=== PATIENT | female | born 1945 | race Caucasian/White ===

== ENCOUNTER 2017-04-19 23:06 | Observation (INO) ==
[2017-04-19] MEDS ORDERED: Prochlorperazine 10 MG/2 ML VIAL IVP ONE (23:30)
--- NOTE | 2017-04-19 23:37 | Emergency Department Note ---
Disposition Clinical Impression: Dizziness Disposition: Admitted As Inpatient Condition: Fair Referrals: Grzegorz Louis Jr, MD [Primary Care Provider] - Forms: ED Satisfaction Letter Time of Disposition: 02:41 Dizziness HPI - General Chief Complaint: ED Nausea/Vomiting/Diarrhea Stated Complaint: dizziness/n/v Time Seen by Provider: 04/19/17 23:17 Source: patient, EMS Limitations: no limitations Nursing Notes Reviewed: Yes Vital Signs Reviewed: Yes - History of Present Illness HPI Narrative: 72-year-old female presents with onset of nausea and vomiting and dizziness. She describes the dizziness as the room is moving, feeling unbalanced and unable to stand straight. She also notes that she feels lightheaded. She states that she feels more lightheaded and dizzy. Symptoms started approximately 3 hours prior to arrival she states it was at 8:00 in the evening and she was playing cards on her pewter. She also mentions symptoms identical to this a few months ago that had subsided. Symptoms are worsened when she opens her eyes, and moves her neck. Better when she closes her eyes and sits still. Previous to her symptoms starting, she had some numbness in her right little and ring finger. Otherwise she denies any weakness, numbness, tingling, voice changes, confusion, fever, recent illness, headache, vision changes. - Related Data Allergies Allergy/AdvReac Type Severity Reaction Status Date / Time Erythromycin Base Allergy Hives Verified 11/20/16 11:45 hydrochlorothiazide Allergy Rash Verified 11/20/16 11:45 Penicillins Allergy Hives Verified 11/20/16 11:45 pseudoephedrine AdvReac Rash Verified 11/20/16 11:45 All systems ED: reviewed and negative except as stated. Constitutional: Denies: fever, chills Eyes: Denies: eye discharge, vision change ENT ED: Denies: throat pain Cardiovascular: Denies: palpitations Respiratory: Denies: dyspnea Gastrointestinal: Denies: abdominal pain Genitourinary: Denies: dysuria Musculoskeletal: Denies: back pain Integumentary: Denies: rash Neurological: Denies: headache, weakness, numbness, paresthesias Psychiatric: Denies: anxiety Endocrine: Denies: fatigue Hematological/Lymphatic: Denies: easy bleeding Allergic/Immunologic: Denies: facial swelling Past Medical History - Past Medical History Medical history: Reports: asthma, hyperlipidemia, hypertension Psychiatric history: Reports: depression - Social History Smoking Status: Never smoker Smokeless Tobacco Status: No Alcohol use: Reports: none Drug use: Reports: none Physical Exam - General Limitations: no limitations General appearance: alert, in no apparent distress - Head Head exam: normocephalic - Neck Neck exam: Present: full ROM. Absent: tenderness - Chest Chest inspection: Present: symmetric chest wall rise - Respiratory Respiratory exam: Present: normal lung sounds bilaterally. Absent: respiratory distress - Cardiovascular Cardiovascular exam: Present: regular rate, normal rhythm - Extremities Exam Extremities exam: Present: normal inspection, full ROM, normal capillary refill - Back Exam Back exam: Present: full ROM. Absent: tenderness - Neurological Exam Neurological exam: Present: alert, oriented X3 - Expanded Neurological Exam Patient oriented to: Present: person, place, time Speech: Present: fluid speech Motor strength - LUE: 5/5 Motor strength - RUE: 5/5 Motor strength - LLE: 5/5 Motor strength - RLE: 5/5 Coma Scale Eye Opening: Spontaneous Coma Scale Motor Response: Obeys Commands Coma Scale Verbal Response: Oriented Coma Scale Total: 15 - Psychiatric Psychiatric exam: Present: normal affect, normal mood - Skin Skin exam: Present: warm, dry, intact, normal color. Absent: rash, cyanosis, diaphoresis Course Course Narrative: Patient seen and examined. She is in no acute distress and nontoxic. Alert and oriented 3. Patient is unwilling to open her eyes for complete neuro exam. She shows no extremity weakness, voice changes, facial asymmetry. Vitals within normal limits. Denies any history of stroke. Anti-medics and workup ordered. - Reevaluation(s) Reevaluation #1: Discussed patient with Dr. Sapp, who also had FaceTime with patient, and advised tis does appear to be vertigo, no overt strok symptoms at this point, will treat with antiemetics and reevaluate. Time: 23:37 Reevaluation #2: On nursing a bedside attempting to place IV. Patient states her symptoms are improving. The improving even before the antiemetic. I had another discussion with patient with Dr. Sapp who again had a stomach patient as well. At this point symptoms are worsening, she has no gross focal neurological deficits. She does have lateral nystagmus, and symptoms are consistent with vertigo area. This point feel this is less likely a stroke and more likely vertigo, however patient has had no prior workup. Upon further discussion with patient, she did have some sensation in her lower legs earlier in the day that had resolved. She describes that as feeling unbalanced. She notes similar symptoms a few months ago as well. Will order CT of head, and hospitalist for admission. Time: 00:41 Reevaluation #3: Pt. discussed with and accepted by hospitalist, Dr. Lovell who also requested aspirin, statin, and telebed. Time: 02:40 Vital Signs Temperature 97.7 F 04/19/17 23:08 Pulse Rate 80 04/19/17 23:08 Respiratory Rate 18 04/19/17 23:08 Blood Pressure 195/88 04/19/17 23:08 O2 Sat by Pulse Oximetry 99 04/19/17 23:08 Temperature 97.7 F 04/19/17 23:08 Pulse Rate 82 04/20/17 01:07 Respiratory Rate 18 04/20/17 01:07 Blood Pressure 177/73 04/20/17 01:07 O2 Sat by Pulse Oximetry 99 04/20/17 01:07 Oxygen Delivery Oxygen Delivery Room Air Dizziness - MDM Narrative Medical decision making narrative: Chest X-Ray 04/19/17 23:17 IMPRESSION: No acute abnormality detected. D/ / Brennan Oliveira MD / Brennan Oliveira MD Interpreting Provider: Brennan Oliveira MD Head CT 04/20/17 00:38 IMPRESSION: Limited study with right frontal lobe ischemia versus artifact. Brain MRI could be obtained for further evaluation if clinically warranted. D/ / Homero Mayer MD / Homero Mayer MD Interpreting Provider: Homero Mayer MD All Lab Results (24 Hours) 04/19/17 04/20/17 04/20/17 Range/Units 23:40 00:31 00:31 WBC 12.2 H (4.3-11.1) K/mcL RBC 4.52 (3.82-4.97) M/mcL Hgb 13.8 (11.5-15.4) g/dL Hct 42.6 (35.3-44.9) % MCV 94.2 (83.0-100.0) fL MCH 30.5 (28.0-33.3) pg MCHC 32.4 (31.6-35.5) g/dL RDW 12.8 (11.5-14.5) % Plt Count 250 (140-400) K/mcL MPV 10.5 (9.4-12.4) fL Immature Gran % 0.3 (0-4) % Seg Neutrophils % 89.1 % Lymphocytes % 6.5 % Monocytes % 3.8 % Eosinophils % 0.1 % Basophils % 0.2 % Neutrophils # 10.9 H (1.6-8.9) K/mcL Lymphocytes # 0.8 (0.6-4.6) K/mcL Monocytes # 0.5 (0.0-1.3) K/mcL Eosinophils # 0.0 (0.0-0.6) K/mcL Basophils # 0.0 (0.0-0.2) K/mcL PT (9.4-12.1) Seconds INR APTT (26.0-36.0) Seconds Sodium 141 (136-145) mEq/L Potassium 3.8 (3.5-4.5) mEq/L Chloride 108 (98-109) mEq/L Carbon Dioxide 22 (19-29) mEq/L BUN 18 (7-20) mg/dL Creatinine 0.68 (0.57-1.11) mg/dL Est GFR ( Amer) > 60 (> 60) Est GFR (Non-Af Amer) > 60 (> 60) BUN/Creatinine Ratio 26 (6-26) Glucose 157 H (70-99) mg/dL Calculated Osmolality 297 (280-300) Calcium 9.2 (8.6-10.8) mg/dL Troponin I (0-0.03) ng/mL Urine Color Yellow (Yellow) Urine Clarity Cloudy A (Clear) Urine pH 7.0 (5.0-8.0) pH Units Ur Specific [place] 1.021 (1.010-1.025) Urine Protein Negative (Neg-Trace) mg/dL Urine Glucose (UA) Normal (Normal) mg/dL Urine Ketones 15 H (Negative) mg/dL Urine Blood Negative (Negative) Urine Nitrite Negative (Negative) Urine Bilirubin Negative (Negative) Urine Urobilinogen Normal (Normal) mg/dL Ur Leukocyte Esterase Negative (Negative) Urine Microscopic RBC 0-3 (0-3) per hpf Urine Microscopic WBC 0-3 (0-3) per hpf Ur Squamous Epith Cells Many H (None-Few) per lpf Urine Bacteria None Seen (None-Few) per hpf Hyaline Casts None Seen (None-Few) per lpf Ur Culture Indicated? NO (NO) 04/20/17 04/20/17 Range/Units 00:31 00:31 WBC (4.3-11.1) K/mcL RBC (3.82-4.97) M/mcL Hgb (11.5-15.4) g/dL Hct (35.3-44.9) % MCV (83.0-100.0) fL MCH (28.0-33.3) pg MCHC (31.6-35.5) g/dL RDW (11.5-14.5) % Plt Count (140-400) K/mcL MPV (9.4-12.4) fL Immature Gran % (0-4) % Seg Neutrophils % % Lymphocytes % % Monocytes % % Eosinophils % % Basophils % % Neutrophils # (1.6-8.9) K/mcL Lymphocytes # (0.6-4.6) K/mcL Monocytes # (0.0-1.3) K/mcL Eosinophils # (0.0-0.6) K/mcL Basophils # (0.0-0.2) K/mcL PT 11.0 (9.4-12.1) Seconds INR 1.0 APTT 25.8 L (26.0-36.0) Seconds Sodium (136-145) mEq/L Potassium (3.5-4.5) mEq/L Chloride (98-109) mEq/L Carbon Dioxide (19-29) mEq/L BUN (7-20) mg/dL Creatinine (0.57-1.11) mg/dL Est GFR ( Amer) (> 60) Est GFR (Non-Af Amer) (> 60) BUN/Creatinine Ratio (6-26) Glucose (70-99) mg/dL Calculated Osmolality (280-300) Calcium (8.6-10.8) mg/dL Troponin I 0.00 (0-0.03) ng/mL Urine Color (Yellow) Urine Clarity (Clear) Urine pH (5.0-8.0) pH Units Ur Specific [place] (1.010-1.025) Urine Protein (Neg-Trace) mg/dL Urine Glucose (UA) (Normal) mg/dL Urine Ketones (Negative) mg/dL Urine Blood (Negative) Urine Nitrite (Negative) Urine Bilirubin (Negative) Urine Urobilinogen (Normal) mg/dL Ur Leukocyte Esterase (Negative) Urine Microscopic RBC (0-3) per hpf Urine Microscopic WBC (0-3) per hpf Ur Squamous Epith Cells (None-Few) per lpf Urine Bacteria (None-Few) per hpf Hyaline Casts (None-Few) per lpf Ur Culture Indicated? (NO) - Lab Data Lab results reviewed: Yes I reviewed the patient's lab results. Result diagrams: 04/20/17 00:31 04/20/17 00:31 Lab Results 04/19/17 04/20/17 04/20/17 Range/Units 23:40 00:31 00:31 WBC 12.2 H (4.3-11.1) K/mcL RBC 4.52 (3.82-4.97) M/mcL Hgb 13.8 (11.5-15.4) g/dL Hct 42.6 (35.3-44.9) % MCV 94.2 (83.0-100.0) fL MCH 30.5 (28.0-33.3) pg MCHC 32.4 (31.6-35.5) g/dL RDW 12.8 (11.5-14.5) % Plt Count 250 (140-400) K/mcL MPV 10.5 (9.4-12.4) fL Immature Gran % 0.3 (0-4) % Seg Neutrophils % 89.1 % Lymphocytes % 6.5 % Monocytes % 3.8 % Eosinophils % 0.1 % Basophils % 0.2 % Neutrophils # 10.9 H (1.6-8.9) K/mcL Lymphocytes # 0.8 (0.6-4.6) K/mcL Monocytes # 0.5 (0.0-1.3) K/mcL Eosinophils # 0.0 (0.0-0.6) K/mcL Basophils # 0.0 (0.0-0.2) K/mcL PT (9.4-12.1) Seconds INR APTT (26.0-36.0) Seconds Sodium 141 (136-145) mEq/L Potassium 3.8 (3.5-4.5) mEq/L Chloride 108 (98-109) mEq/L Carbon Dioxide 22 (19-29) mEq/L BUN 18 (7-20) mg/dL Creatinine 0.68 (0.57-1.11) mg/dL Est GFR ( Amer) > 60 (> 60) Est GFR (Non-Af Amer) > 60 (> 60) BUN/Creatinine Ratio 26 (6-26) Glucose 157 H (70-99) mg/dL Calculated Osmolality 297 (280-300) Calcium 9.2 (8.6-10.8) mg/dL Troponin I (0-0.03) ng/mL Urine Color Yellow (Yellow) Urine Clarity Cloudy A (Clear) Urine pH 7.0 (5.0-8.0) pH Units Ur Specific [place] 1.021 (1.010-1.025) Urine Protein Negative (Neg-Trace) mg/dL Urine Glucose (UA) Normal (Normal) mg/dL Urine Ketones 15 H (Negative) mg/dL Urine Blood Negative (Negative) Urine Nitrite Negative (Negative) Urine Bilirubin Negative (Negative) Urine Urobilinogen Normal (Normal) mg/dL Ur Leukocyte Esterase Negative (Negative) Urine Microscopic RBC 0-3 (0-3) per hpf Urine Microscopic WBC 0-3 (0-3) per hpf Ur Squamous Epith Cells Many H (None-Few) per lpf Urine Bacteria None Seen (None-Few) per hpf Hyaline Casts None Seen (None-Few) per lpf Ur Culture Indicated? NO (NO) 04/20/17 04/20/17 Range/Units 00:31 00:31 WBC (4.3-11.1) K/mcL RBC (3.82-4.97) M/mcL Hgb (11.5-15.4) g/dL Hct (35.3-44.9) % MCV (83.0-100.0) fL MCH (28.0-33.3) pg MCHC (31.6-35.5) g/dL RDW (11.5-14.5) % Plt Count (140-400) K/mcL MPV (9.4-12.4) fL Immature Gran % (0-4) % Seg Neutrophils % % Lymphocytes % % Monocytes % % Eosinophils % % Basophils % % Neutrophils # (1.6-8.9) K/mcL Lymphocytes # (0.6-4.6) K/mcL Monocytes # (0.0-1.3) K/mcL Eosinophils # (0.0-0.6) K/mcL Basophils # (0.0-0.2) K/mcL PT 11.0 (9.4-12.1) Seconds INR 1.0 APTT 25.8 L (26.0-36.0) Seconds Sodium (136-145) mEq/L Potassium (3.5-4.5) mEq/L Chloride (98-109) mEq/L Carbon Dioxide (19-29) mEq/L BUN (7-20) mg/dL Creatinine (0.57-1.11) mg/dL Est GFR ( Amer) (> 60) Est GFR (Non-Af Amer) (> 60) BUN/Creatinine Ratio (6-26) Glucose (70-99) mg/dL Calculated Osmolality (280-300) Calcium (8.6-10.8) mg/dL Troponin I 0.00 (0-0.03) ng/mL Urine Color (Yellow) Urine Clarity (Clear) Urine pH (5.0-8.0) pH Units Ur Specific [place] (1.010-1.025) Urine Protein (Neg-Trace) mg/dL Urine Glucose (UA) (Normal) mg/dL Urine Ketones (Negative) mg/dL Urine Blood (Negative) Urine Nitrite (Negative) Urine Bilirubin (Negative) Urine Urobilinogen (Normal) mg/dL Ur Leukocyte Esterase (Negative) Urine Microscopic RBC (0-3) per hpf Urine Microscopic WBC (0-3) per hpf Ur Squamous Epith Cells (None-Few) per lpf Urine Bacteria (None-Few) per hpf Hyaline Casts (None-Few) per lpf Ur Culture Indicated? (NO) - Radiology Data Radiology results reviewed: Yes I reviewed the patient's radiology results. - EKG Data EKG attestation: Yes I reviewed and interpreted this EKG. EKG results narrative: sinus rhythym, non acute ST changes, signs of ischemia Attestation Statement - Attestation Attestation: I, Jeremias Sapp DO have provided [id number] time during the care of this patient. Detailed review the presentation, symptoms, medical history were discussed and reviewed with the mid-level provider Leeroy Pastrana PA-C/CARDIAC CATH LAB TECHNOLOGIST. Medical intervention labs and imaging studies were reviewed in detail. See full documentation of physical exam and course of care in the mid-level provider 's note. I agree with the determined course of care, medical interventio,n and disposition put forth by the mid-level provider. See below documentation for changes or alterations in documentation. 72-year-old female presents emergency room with acute onset of dizziness. Symptoms are only present when she opens her eyes. She had these symptoms on and off several times in the past. Usually resolve on her own. She does not see a neurologist and has not had an official diagnosis of vertigo. No history of cardiac related issues, strokes, blood clots. Patient denies any recent trauma or injuries. Denies any medication changes. Currently denying chest pain shortness of breath headache vision changes nausea vomiting or diarrhea. Main complaint is the uncontrolled spinning sensation. Neurologic evaluation shows no acute signs of asymmetry in facial musculature. She has normal function of the upper and lower extremities while she keeps the eye shut. Her eyes are open she has lateralizing nystagmus is fatigable. She has symptoms that are present with turning of the head as well is opening of the eyes. No physical exam findings concerning for strokelike symptoms at this time. IV access obtained and Compazine given. Symptoms resolved spontaneously on her own just prior to the medications and almost completely gone away with the medication this time. Because of the patient's history as well as the onset of the symptoms we are going to do a neurologic evaluation including CT of the head labs and then most likely admission to hospital for dizziness symptoms to have further MRI and carotid Dopplers. Clinically no acute signs of strokelike symptoms this time stroke alert was not catheter. Patient family was informed See detailed discussion at the bedside. Patient will be admitted for further evaluation and definitive management. Symptoms have completely resolved during the emergency room prior to being admitted at this time. EKG reviewed shows stable sinus rhythm and no acute abnormalities no acute signs of morphology issues or interval abnormalities this time. No acute signs of ST segment elevation myocardial infarction. Patient and does not form a comfortable plan. See detailed documentation of physical exam, stroke evaluation, medical intervention, medical decision-making, consultations and admission process in the mid-level provider's note. [id number] Patient is symptom free at this time. She does feel slightly unsteady and this could be the medication. CT imaging reviewed with possibility of ischemic area in the frontal aspect of the brain. Does not fit the patient's symptoms of vertigo on presentation. No other acute pathology noted. Admission process to be completed for MRI and carotid Dopplers. Patient is otherwise at baseline no acute neurologic symptoms or deficits at this point. See documentation in consultation with the
[2017-04-19 23:46] LABS: Bilirubin,Urine Negative (Negative); Blood,Urine Negative (Negative); Clarity,Urine Cloudy (Clear); Color,Urine Yellow (Yellow); Glucose,Urine (UA) Normal (Normal); Ketones,Urine 15 mg/dL (Negative); Leukocyte Esterase,Urine Negative (Negative); Nitrite,Urine Negative (Negative); Protein,Urine Negative (Neg-Trace); Specific Gravity,Urine 1.021 (1.010-1.025); Urobilinogen,Urine Normal (Normal)
[2017-04-19 23:49] LABS: Bacteria,Urine None Seen per hpf (None-Few); Hyaline Casts,Urine None Seen per lpf (None-Few); RBC,Urine 0-3 per hpf (0-3); Squamous Epithelial Cell,Urine Many per lpf (None-Few); WBC,Urine 0-3 per hpf (0-3)
[2017-04-20 00:46] LABS: Activated Partial Thrombo Time 25.8 Seconds (26.0-36.0); Basophils % 0.2 %; Eosinophils % 0.1 %; Hematocrit 42.6 % (35.3-44.9); Hemoglobin 13.8 g/dL (11.5-15.4); Immature Granulocytes % 0.3 % (0-4); Lymphocytes # 0.8 K/mcL (0.6-4.6); Lymphocytes % 6.5 %; Mean Corpuscular HGB Conc 32.4 g/dL (31.6-35.5); Mean Corpuscular Hemoglobin 30.5 pg (28.0-33.3); Mean Corpuscular Volume 94.2 fL (83.0-100.0); Mean Platelet Volume 10.5 fL (9.4-12.4); Monocytes # 0.5 K/mcL (0.0-1.3); Monocytes % 3.8 %; Neutrophils # 10.9 K/mcL (1.6-8.9); Platelet Count 250 K/mcL (140-400); Red Blood Count 4.52 M/mcL (3.82-4.97); Red Cell Distribution Width 12.8 % (11.5-14.5); Segmented Neutrophils % 89.1 %
[2017-04-20 00:54] LABS: BUN/Creatinine Ratio 26 (6-26); Blood Urea Nitrogen 18 mg/dL (7-20); Calcium 9.2 mg/dL (8.6-10.8); Carbon Dioxide 22 mEq/L (19-29); Chloride 108 mEq/L (98-109); Glucose 157 mg/dL (70-99); Osmolality,Calculated 297 (280-300); Potassium 3.8 mEq/L (3.5-4.5); Sodium 141 mEq/L (136-145); eGFR For African Americans > 60 (> 60); eGFR For Non-African Americans > 60 (> 60)
[2017-04-20] MEDS ORDERED: Aspirin 81 MG TAB.CHEW PO STA (02:38)
[2017-04-20] MEDS ORDERED: *HR* Morphine 2 MG/ML SYRINGE IVP PRN (06:17)
[2017-04-20] MEDS ORDERED: Naloxone 0.4 MG/ML INJ IVP PRN (06:17)
[2017-04-20] MEDS ORDERED: Ondansetron 4 MG/2 ML VIAL IVP PRN (06:17)
[2017-04-20] MEDS ORDERED: Acetaminophen 325 MG TABLET PO PRN (06:17)
[2017-04-20] MEDS ORDERED: 0.9 % Sodium Chloride 1,000 ML IVC SCH (06:30)
[2017-04-20] MEDS: Aspirin 81 MG TAB.CHEW PO SCH (07:40)
[2017-04-20] MEDS: *HR* Heparin 5,000 UNIT/ML VIAL SQ SCH ×2 (07:40→16:08)
[2017-04-20] MEDS ORDERED: Lisinopril 20 MG TABLET PO SCH (09:00)
[2017-04-20 09:08] LABS: Basophils % 0.2 %; Eosinophils % 0.2 %; Hematocrit 39.1 % (35.3-44.9); Hemoglobin 12.6 g/dL (11.5-15.4); Immature Granulocytes % 0.2 % (0-4); Lymphocytes # 1.6 K/mcL (0.6-4.6); Lymphocytes % 17.9 %; Mean Corpuscular HGB Conc 32.2 g/dL (31.6-35.5); Mean Corpuscular Hemoglobin 29.9 pg (28.0-33.3); Mean Corpuscular Volume 92.7 fL (83.0-100.0); Mean Platelet Volume 10.6 fL (9.4-12.4); Monocytes # 0.7 K/mcL (0.0-1.3); Monocytes % 7.9 %; Neutrophils # 6.5 K/mcL (1.6-8.9); Platelet Count 248 K/mcL (140-400); Red Blood Count 4.22 M/mcL (3.82-4.97); Segmented Neutrophils % 73.6 %
[2017-04-20 09:30] LABS: BUN/Creatinine Ratio 24 (6-26); Blood Urea Nitrogen 15 mg/dL (7-20); Calcium 8.8 mg/dL (8.6-10.8); Carbon Dioxide 23 mEq/L (19-29); Chloride 111 mEq/L (98-109); Glucose 97 mg/dL (70-99); Osmolality,Calculated 299 (280-300); Potassium 3.3 mEq/L (3.5-4.5); Sodium 144 mEq/L (136-145); eGFR For African Americans > 60 (> 60); eGFR For Non-African Americans > 60 (> 60)
[2017-04-20 09:31] LABS: Chol/HDL Ratio 4.2 (0-4.9); Magnesium 1.9 mg/dL (1.6-2.6)
--- NOTE | 2017-04-20 13:20 | Internal Med History&Physical ---
Date of Encounter: 04/20/17 Time of Encounter: 09:30 Assessment and Plan (1) Ataxia Current visit: Yes Status: Acute Will admit the pt into Tele With her ataxia and dizziness concerned for acute posterior circulation CVA Reviewed CT of Head.. No acute infractions.. however there was an artifact in frontal lobe will get MRI of brain 2 D Echo and Carotid doppler cont ASA 81mg for now--- she is ASA naive Reviewed FLP - LDL -141.. started on Lipitor (2) Vertigo Current visit: Yes Status: Acute Her presentation also concering for Positional vertigo too PT / OT eval Also cont Meclizine TID (3) Hypertensive urgency Current visit: Yes Status: Acute Uncontrolled HTN Cont home med Losartan and added Metoprolol Seems to be stable now. (4) Hyperlipidemia Current visit: Yes Status: Acute started on lipitor Qualifiers: Hyperlipidemia type: unspecified Qualified Code(s): E78.5 - Hyperlipidemia , unspecified Internal Medicine - H&P: HPI Chief complaint: Dizziness Admitted From: Emergency Dept Plans for Post Hospital Care: Home History of present illness: This is a 72-year-old female with known PMH HTN presented to ER with suddent onset lightheadedness, dizziness with nausea and vomiting. She describes the dizziness as the room is moving, feeling unbalanced and unable to stand straight. She also notes that she feels lightheaded. She states that she feels more lightheaded and dizzy. Symptoms started approximately 3 hours prior to arrival she states it was at 8:00 in the evening and she was playing cards on her pewter. She also mentions symptoms identical to this 2 months ago that had subsided. Symptoms are worsened when she opens her eyes, and moves her neck. Better when she closes her eyes and sits still. Denied any CP / SOB Past Med Surg Social Fam HX - Past Medical History Medical history: asthma, hyperlipidemia, hypertension Psychiatric history: depression - Past Surgical History Surgical History: no surgical history - Social History Smoking Status: Never smoker Smokeless Tobacco Status: No Alcohol use: none Drug use: none - Family History Mother Living Status: Age at : 57 Cause of : Breast CA Hx Family Cardiac Disorders: No Hx Family Respiratory Disorders: No Hx Family Cancer: Yes Hx Family GI Disorders: No Hx Family Genitourinary Disorders: No Hx Family Endocrine Disorder: Yes (Thyroid tumor) Hx Family Musculoskeletal Disorders: No Hx Family Neuromuscular Disorders: No Hx Family Neurologic Disorders: No Hx Family HEENT Disorders: No Hx Family Autoimmune Disorders: No Hx Family Reproductive Disorders: No Hx Family Psychosocial Disorders: No Hx Family Medical Disorders: No Internal Medicine - H&P: Meds Losartan Potassium [Cozaar] 50 mg PO DAILY 04/20/17 [History] 3 Allergy/AdvReac Type Severity Reaction Status Date / Time Erythromycin Base Allergy Hives Verified 11/20/16 11:45 hydrochlorothiazide Allergy Rash Verified 11/20/16 11:45 Penicillins Allergy Hives Verified 11/20/16 11:45 pseudoephedrine AdvReac Rash Verified 11/20/16 11:45 All Systems PM: A 10-system review of systems was performed and is negative for pertinent findings except as documented above in the HPI. Review of systems: All the systems are reviewed everything is benign except the systems and symptoms I mentioned in the history of present illness - Constitutional Vitals: Temp Pulse Resp BP Pulse Ox 98.6 F 65 16 135/69 95 04/20/17 11:37 04/20/17 11:37 04/20/17 11:37 04/20/17 11:37 04/20/17 11:37 General appearance: Present: A&O X 3, pleasant, no acute distress, answers questions appropriately - Head Head exam: Present: atraumatic, normal inspection - Neck Neck exam general surgery: Present: supple - Respiratory Respiratory exam: Present: CTAB. Absent: accessory muscle use, rales, rhonchi, wheezes - Cardiovascular Cardiovascular exam: Present: RRR, +S1, +S2. Absent: systolic murmur - GI/Abdominal GI/Abdominal exam: Present: normal bowel sounds, soft, no peritoneal signs. Absent: distended, tenderness - Extremities Exam Extremities exam: Absent: calf tenderness, pedal edema, tenderness - Neurological Exam Neurological exam: Present: alert, CN II-XII intact, normal gait, oriented X3, no focal deficits. Absent: pronater drift, facial droop, speech deficit - Psychiatric Psychiatric exam: Present: normal affect, normal mood Internal Med - H&P Results - Labs CBC & Chem 7: 04/20/17 08:33 04/20/17 08:33 Labs: Short CBC 04/20/17 Range/Units 08:33 WBC 8.8 (4.3-11.1) K/mcL Hgb 12.6 (11.5-15.4) g/dL Hct 39.1 (35.3-44.9) % Plt Count 248 (140-400) K/mcL Neutrophils # 6.5 (1.6-8.9) K/mcL BMP 04/20/17 08:33 Sodium 144 Potassium 3.3 L Chloride 111 H Carbon Dioxide 23 BUN 15 Creatinine 0.63 Glucose 97 Calcium 8.8 Cardiac Enzymes 04/20/17 Range/Units 08:33 Troponin I 0.00 (0-0.03) ng/mL
--- NOTE | 2017-04-20 15:30 | Event Note ---
Date of Encounter: 04/20/17 Time of Encounter: 15:29 A review by [facility] and a member of the utilization review committee has determines that the is to be changed to observation using condition code 44.
[2017-04-20] MEDS ORDERED: Famotidine 20 MG/2 ML VIAL IVP SCH (18:00)
--- NOTE | 2017-04-20 18:43 | Electrocardiograph Report ---
[place] [id number] Test Date: 2017-04-20 Pat Name: Jessica Gracia Department: 105 Room: 3B32 Gender: F Senior Underwriting Assistant: SHOSHANA : [id number] Requested By: Henry Pastrana Order Number: [id number] Reading MD: Elisha Reyes Measurements Intervals [place] Rate: 71 P: 56 ME: 184 QRS: 45 QRSD: 77 T: 11 QT: 402 QTc: 425 Interpretive Statements SINUS RHYTHM NONSPECIFIC T-WAVE ABNORMALITY Electronically Signed On 04-20-2017 18:41:42 EDT by Elisha Reyes
[2017-04-21] MEDS: *HR* Heparin 5,000 UNIT/ML VIAL SQ SCH ×2 (00:49→08:21)
[2017-04-21] MEDS: Aspirin 81 MG TAB.CHEW PO SCH (08:20)
--- NOTE | 2017-04-21 10:50 | Discharge Summary ---
Date of Encounter: 04/21/17 Time of Encounter: 10:45 - Discharge Diagnosis (1) Hypertensive urgency Priority: Primary Status: Acute Comments: Has known hypertension. SBP in 190s/200 on arrival. BP improved and ED with one-time dose IV hydralazine. Uncontrolled BP possibly contributing to vertigo/ ataxia. On Cozaar at home, metoprolol added this admission. BP controlled with home Cozaar and new BB; continue both at discharge. Patient advised to monitor BP at home (she has home BP machine). Recommend follow-up with PCP within 3 days for repeat BP check. (2) Carotid stenosis Priority: Primary Status: Acute Comments: 04/20/2017 bilateral carotid dopplers with ICA 60-79%. ASA, statin initiated. Will need outpatient follow-up with Vascular Surgery Qualifiers: Laterality: bilateral Qualified Code(s): I65.23 - Occlusion and stenosis of bilateral carotid arteries (3) Hypokalemia Priority: Primary Status: Acute Comments: K 3.3; replaced. Recommend follow-up with PCP in 5 days for repeat labs (4) Hyperlipidemia Priority: Primary Status: Acute Comments: LDL 141. Statin started inpatient. Recommend repeating lipid panel in 6 months with PCP. Qualifiers: Hyperlipidemia type: pure hypercholesterolemia Qualified Code(s): E78.00 - Pure hypercholesterolemia, unspecified; E78.0 - Pure hypercholesterolemia (5) Vertigo Priority: Primary Status: Acute Comments: presented with 2 episodes of dizziness with head movement on day of presentation. Sx's resolved in ED; no recurrence. Brain MRI unremarkable, TTE without evidence of shunting. Sx's possibly secondary to uncontrolled HTN. Meclizine started inpatient, will cont at discharge. Plan for outpatient follow- up with PCP in 5 days - Discharge Medications Prescriptions: Aspirin 81 mg PO DAILY #30 tab.chew Atorvastatin [Lipitor] 40 mg PO HS #30 tablet Meclizine [Antivert] 12.5 mg PO TID #30 tablet Metoprolol [Lopressor] 25 mg PO BID #60 tablet Home Medications: Losartan Potassium [Cozaar] 50 mg PO DAILY 04/20/17 [History] Aspirin 81 mg PO DAILY #30 tab.chew 04/21/17 [Rx] Atorvastatin [Lipitor] 40 mg PO HS #30 tablet 04/21/17 [Rx] Meclizine [Antivert] 12.5 mg PO TID #30 tablet 04/21/17 [Rx] Metoprolol [Lopressor] 25 mg PO BID #60 tablet 04/21/17 [Rx] Allergies/Adverse Reactions: 3 Allergy/AdvReac Type Severity Reaction Status Date / Time Erythromycin Base Allergy Hives Verified 11/20/16 11:45 hydrochlorothiazide Allergy Rash Verified 11/20/16 11:45 Penicillins Allergy Hives Verified 11/20/16 11:45 pseudoephedrine AdvReac Rash Verified 11/20/16 11:45 Procedures/tests Complete & Pending: Procedures Performed prior 72 hours Category Date Time Status MR head/brain wo con [MR] Routine MRI 04/20/17 06:16 Completed ECG 12 lead ECG [ECG] AM 0600 Y 04/21/17 06:00 Completed EV carotid duplex imaging BI Routine Y 04/20/17 06:16 Completed EV echo with saline Routine Y 04/20/17 06:16 Completed Date of admission: 04/20/17 02:50 Primary care physician: Grzegorz Louis Jr, MD Consults: 04/20/17 06:20 Consult to Occupational Therapy [CONS] Routine Comment: Evaluate, develop and implement POC Reason for Consult: Possible CVA, OT eval Consult to Physical Therapy [CONS] Routine Comment: Evaluate, develop and implement POC Reason for Consult: Possible CVA, PT eval Discharging clinician: Maggi Sweet Anticipated date of discharge: 04/21/17 - Patient Status Disposition: Home, Self-Care Condition: Good Functional capacity at discharge: independent ambulation Overall status at discharge: patient is back to baseline - Discharge Instructions Follow Up With: Grzegorz Louis Jr, MD [Primary Care Provider] - 04/26/17 1:00 pm (This appointment will be with Devika Dozier CNP. Thank you!) Additional Instructions: You will need to follow-up with Dr. Norman regarding carotid stenosis Interval History: Seen and examined at bedside; says she feels better and wants to go home. No sx recurrence while inpatient. Discussed BP control and carotid stenosis at length with patient. She verbalizes understanding and aware of follow-up appts have been made. She has no complaints, denies double/blurred vision. No numbness, tingling. No CP, no SOB Hospital course: Ms. Gracia is a 72 year old female - Time Spent with Patient Total time spent providing and/or coordinating discharge services: Greater than 30 minutes (67 minutes) - Constitutional Vitals: Temp Pulse Resp BP Pulse Ox 98.5 F 68 14 142/77 94 04/21/17 06:07 04/21/17 06:07 04/21/17 06:07 04/21/17 06:07 04/21/17 06:07 General appearance: Present: A&O X 3, pleasant, no acute distress, answers questions appropriately - Head Head exam: Present: atraumatic, normocephalic - Eye Eye exam: Present: PERRL, conjuntiva pink, sclera anicteric Pupils: Present: PERRL - Neck Neck exam general surgery: Present: supple, trachea midline. Absent: lymphadenopathy - Respiratory Respiratory exam: Present: CTAB. Absent: accessory muscle use, rales, rhonchi, wheezes - Cardiovascular Cardiovascular exam: Present: RRR, +S1, +S2. Absent: diastolic murmur, gallop, rubs, systolic murmur - GI/Abdominal GI/Abdominal exam: Present: normal bowel sounds, soft, no peritoneal signs. Absent: distended, tenderness - Extremities Exam Extremities exam: Present: warm, radial pulses palpable and symmetrical. Absent : calf tenderness, cyanotic, pedal edema - Neurological Exam Neurological exam: Present: CN II-XII intact, oriented X3, no focal deficits. Absent: pronater drift, facial droop, speech deficit - Skin Skin exam: Present: dry, intact - Stroke Has Patient Been Evaluated by Rehab for Stroke: Yes Contraindication Rehab Services Not Assessed: Returned to Prior Level of Function
[2017-04-21 11:43] VITALS: BP 120/71
--- NOTE | 2017-04-22 08:09 | Carotid Imaging Report ---
Carotid Duplex Patient Name:Jessica Gracia Order Number:[id number] Procedure Date:04/20/2017 Date:1945ge:72 yrs Gender:Female Lt BP:154 / 64 mmHg Rt.BP:142 / 62 mmHgHeart Rate: Location:[facility] Room #: [employer] Operator:Nikolas Day RN, RDCS Referring MD:Tay Noonan MD Reading MD:Jcarlos Sue MD Primary Indications:Cerebral Vascular Accident Risk Factors Yes/No Hypertension Yes Diabetes No Hypercholesterolemia Yes Smoker Previous No Hx of TIA No Hx of CVA No Anticoagulants No Hx of CAD/PTCA No Previous Vascular Surgery No Impressions: Findings: Bilateral mid ICA has a severe, 60-79% stenosis. Recommendations: Risk Factor Modification, Medical Therapy, and Follow up exam 12 months. Test completed on 04/20/2017 at 3:25:00 pm. Findings Carotid Duplex: Right: The right proximal common carotid artery has a PSV of 164 cm/s and a EDV of 28 cm/s. The right mid common carotid artery has a PSV of 88 cm/s and a EDV of 20 cm/s. The right distal common carotid artery has a PSV of 83 cm/s and a EDV of 24 cm/s. There is nonstenotic plaque in the right bifurcation with a PSV of 71 cm/s and a EDV of 24 cm/s. There is smooth heterogeneous plaque. There is nonstenotic plaque in the right proximal internal carotid artery with a PSV of 94 cm/s and a EDV of 32 cm/s. There is smooth heterogeneous plaque. There is 60-79% stenosis in the right mid internal carotid artery with a PSV of 167 cm/s and a EDV of 50 cm/s. There is 60-79% stenosis in the right distal internal carotid artery with a PSV of 174 cm/s and a EDV of 55 cm/s. The right eca has a PSV of 104 cm/s and a EDV of 9 cm/s. The right vertebral artery has a PSV of 55 cm/s and a EDV of 14 cm/s. Left: The left proximal common carotid artery has a PSV of 139 cm/s and a EDV of 28 cm/s. The left mid common carotid artery has a PSV of 113 cm/s and a EDV of 29 cm/s. The left distal common carotid artery has a PSV of 85 cm/s and a EDV of 26 cm/s. There is nonstenotic plaque in the left bifurcation with a PSV of 88 cm/s and a EDV of 29 cm/s. There is smooth heterogeneous plaque. There is nonstenotic plaque in the left proximal internal carotid artery with a PSV of 78 cm/s and a EDV of 19 cm/s. There is smooth heterogeneous plaque. There is 40-59% stenosis in the left mid internal carotid artery with a PSV of 126 cm/s and a EDV of 38 cm/s. There is 60-79% stenosis in the left distal internal carotid artery with a PSV of 142 cm/s and a EDV of 53 cm/s. The left eca has a PSV of 112 cm/s and a EDV of 13 cm/s. The left vertebral artery has a PSV of 73 cm/s and a EDV of 15 cm/s. Prior Study: No prior study available for comparison. Carotid Results Right PSV EDV Assessment Proximal CCA 164 28 Normal Mid CCA 88 20 Normal Distal CCA 83 24 Normal Bifurcation 71 24 Non Stenotic Plaque Proximal ICA 94 32 Non Stenotic Plaque Mid ICA 167 50 60-79% stenosis Distal ICA 174 55 60-79% stenosis ECA 104 9 Normal Vertebral Artery 55 14 Normal Left PSV EDV Assessment Proximal CCA 139 28 Normal Mid CCA 113 29 Normal Distal CCA 85 26 Normal Bifurcation 88 29 Non Stenotic Plaque Proximal ICA 78 19 Non Stenotic Plaque Mid ICA 126 38 40-59% stenosis Distal ICA 142 53 60-79% stenosis ECA 112 13 Normal Vertebral Artery 73 15 Normal Ratio's Right ICA/CCA Ratio: 1.98 ICA/CCA Values: 174/88 Left ICA/CCA Ratio: 1.26 ICA/CCA Values: 142/113 Updated by Jcarlos Sue MD on 04/22/2017 6:33:30 AM electronically signed on 04/22/2017 6:33:52 AM with status of Final
--- NOTE | 2017-04-22 08:09 | Electrocardiograph Report ---
[address] [address] Test Date: 2017-04-21 Pat Name: Jessica Gracia Department: 113 Room: 3B32 Gender: F [employer]iding In[employer]: MEENU : 1945 Requested By: Tay Noonan Order Number: [id number] Reading MD: Gian Jones MD Measurements Intervals [place] Rate: 66 P: 66 MI: 196 QRS: 64 QRSD: 76 T: 55 QT: 397 QTc: 410 Interpretive Statements SINUS RHYTHM Electronically Signed On 04-22-2017 6:35:57 EDT by Gian Jones MD
== END 2017-04-21 13:55 | disposition home or self-care (01) ==
LOC: 3BNU 23:06 → EMEROO 23:06 → SUATTDRO 04-20 02:50 → 3BNU 04-20 03:24
PROVIDERS: ADMIT Family Medicine; ATTEND Internal Medicine

== ENCOUNTER 2021-08-16 18:23 | Observation (INO) ==
[2021-08-16] MEDS ORDERED: *HR* Adenosine 6 MG/2 ML SYRINGE IVP ONE (18:27)
[2021-08-16] MEDS ORDERED: 0.9 % Sodium Chloride 1,000 ML IVC ONE (18:32)
[2021-08-16] MEDS: DilTIAZem 50 MG/50 ML IV.SOLN IVC SCH ×2 (18:41→23:42)
[2021-08-16 19:09] LABS: Basophils % 0.3 %; Eosinophils # 0.2 K/mcL (0.0-0.6); Eosinophils % 1.9 %; Hematocrit 41.8 % (35.3-44.9); Hemoglobin 13.2 g/dL (11.5-15.4); Immature Granulocytes % 0.3 % (0-4); Lymphocytes # 2.1 K/mcL (0.6-4.6); Lymphocytes % 18.9 %; Mean Corpuscular HGB Conc 31.6 g/dL (31.6-35.5); Mean Corpuscular Hemoglobin 30.3 pg (28.0-33.3); Mean Corpuscular Volume 95.9 fL (83.0-100.0); Mean Platelet Volume 11.4 fL (9.4-12.4); Monocytes # 1.2 K/mcL (0.0-1.3); Monocytes % 11.4 %; Neutrophils # 7.3 K/mcL (1.6-8.9); Platelet Count 226 K/mcL (140-400); Red Blood Count 4.36 M/mcL (3.82-4.97); Red Cell Distribution Width 12.7 % (11.5-14.5); Segmented Neutrophils % 67.2 %; White Blood Count 10.9 K/mcL (4.3-11.1)
[2021-08-16 19:20] LABS: INR 1.1; Prothrombin Time 12.1 Seconds (9.4-12.1)
[2021-08-16 19:29] LABS: BUN/Creatinine Ratio 22 (6-26); Blood Urea Nitrogen 12 mg/dL (8-23); Calcium 8.3 mg/dL (8.6-10.3); Carbon Dioxide 23 mEq/L (23-29); Chloride 106 mEq/L (98-107); Glucose 132 mg/dL (70-105); Magnesium 2.1 mg/dL (1.6-2.6); Osmolality,Calculated 292 (280-300); Potassium 3.3 mEq/L (3.5-5.1); Sodium 140 mEq/L (136-145); eGFR For African Americans > 60 (> 60); eGFR For Non-African Americans > 60 (> 60)
[2021-08-16 19:30] LABS: Troponin I < 0.03 ng/mL (< 0.04)
[2021-08-16] MEDS ORDERED: Isovue-370 500 ML BOTTLE IVP ONE (19:30)
[2021-08-16 19:45] LABS: Thyroid Stimulating Hormone 0.638 mcIU/mL (0.340-5.600)
[2021-08-16 19:52] LABS: Bacteria,Urine Few per hpf (None-Few); Bilirubin,Urine Negative (Negative); Blood,Urine Negative (Negative); Clarity,Urine Clear (Clear); Color,Urine Light-Yellow (Yellow); Glucose,Urine (UA) Normal (Normal); Ketones,Urine 10 mg/dL (Negative); Leukocyte Esterase,Urine Moderate (Negative); Nitrite,Urine Negative (Negative); Protein,Urine Negative (Neg-Trace); RBC,Urine 0-3 per hpf (0-3); Specific Gravity,Urine 1.011 (1.010-1.025); Squamous Epithelial Cell,Urine Few per hpf (None-Few); Urobilinogen,Urine Normal (Normal)
[2021-08-16 20:29] LABS: Influenza A PCR Negative (Negative); Influenza B PCR Negative (Negative); Resp. Syncytial Virus PCR Negative (Negative)
[2021-08-16 20:35] LABS: SARS-CoV-2 by PCR (In House) Negative (Negative)
[2021-08-16] MEDS ORDERED: *HR* Heparin 5,000 UNIT/ML VIAL IVP ONE (21:01)
[2021-08-16] MEDS ORDERED: *HR* Heparin 5,000 UNIT/ML VIAL IVP PRN ×2 (21:01)
[2021-08-16] MEDS ORDERED: Acetaminophen 325 MG TABLET PO PRN (21:15)
[2021-08-16] MEDS ORDERED: Ondansetron 4 MG/2 ML VIAL IVP PRN (21:15)
[2021-08-16] MEDS ORDERED: Naloxone 0.4 MG/ML INJ IVP PRN (21:15)
[2021-08-16] MEDS ORDERED: Furosemide 40 MG/4 ML VIAL IVP ONE (21:17)
[2021-08-16] MEDS ORDERED: Perflutren Lipid Microsphere 1.3 ML in 0.9 % Sodium Chloride 8.7 ML IVP PRN (21:17)
[2021-08-16] MEDS ORDERED: Ipratropium/Albuterol Neb 3 ML IH PRN (21:19)
[2021-08-16 21:31] LABS: Hemoglobin 12.3 g/dL (11.5-15.4); Mean Corpuscular HGB Conc 30.8 g/dL (31.6-35.5); Mean Corpuscular Hemoglobin 30.2 pg (28.0-33.3); Mean Corpuscular Volume 98.3 fL (83.0-100.0); Mean Platelet Volume 11.7 fL (9.4-12.4); Platelet Count 206 K/mcL (140-400); Red Blood Count 4.07 M/mcL (3.82-4.97); Red Cell Distribution Width 12.9 % (11.5-14.5); White Blood Count 12.2 K/mcL (4.3-11.1)
[2021-08-16] MEDS: Heparin 25,000UNIT/250ML 1/2NS 25,000 UNIT/250 ML IV.SOLN IVC SCH (21:48)
[2021-08-17] MEDS: cefTRIAXone 1,000 MG in 0.9 % Sodium Chloride Mini Bag 100 ML IVPB SCH ×2 (00:28→08:17)
[2021-08-17] MEDS ORDERED: *HR* Metoprolol 5 MG/5 ML VIAL IVP PRN (01:03)
[2021-08-17] MEDS: DilTIAZem 50 MG/50 ML IV.SOLN IVC SCH ×2 (02:52→06:00)
[2021-08-17 05:37] LABS: Basophils % 0.3 %; Eosinophils # 0.1 K/mcL (0.0-0.6); Eosinophils % 0.7 %; Hematocrit 39.3 % (35.3-44.9); Hemoglobin 12.7 g/dL (11.5-15.4); Immature Granulocytes % 0.4 % (0-4); Lymphocytes # 1.7 K/mcL (0.6-4.6); Lymphocytes % 17.6 %; Mean Corpuscular HGB Conc 32.3 g/dL (31.6-35.5); Mean Corpuscular Hemoglobin 30.4 pg (28.0-33.3); Mean Platelet Volume 11.9 fL (9.4-12.4); Monocytes # 1.2 K/mcL (0.0-1.3); Monocytes % 12.1 %; Neutrophils # 6.5 K/mcL (1.6-8.9); Platelet Count 211 K/mcL (140-400); Red Blood Count 4.18 M/mcL (3.82-4.97); Segmented Neutrophils % 68.9 %; White Blood Count 9.5 K/mcL (4.3-11.1)
[2021-08-17 06:03] LABS: Chol/HDL Ratio 2.4 (0-4.9)
[2021-08-17 06:06] LABS: Troponin I 0.08 ng/mL (< 0.04)
[2021-08-17 06:07] LABS: BUN/Creatinine Ratio 15 (6-26); Blood Urea Nitrogen 8 mg/dL (8-23); Calcium 8.2 mg/dL (8.6-10.3); Carbon Dioxide 24 mEq/L (23-29); Chloride 107 mEq/L (98-107); Glucose 125 mg/dL (70-105); Osmolality,Calculated 290 (280-300); Potassium 3.5 mEq/L (3.5-5.1); Sodium 140 mEq/L (136-145); eGFR For African Americans > 60 (> 60); eGFR For Non-African Americans > 60 (> 60)
[2021-08-17 11:17] LABS: Estimated Average Glucose 140 mg/dl; Hemoglobin A1C 6.5 %
[2021-08-17] MEDS: Metoprolol XL (24 HR) Succ 25 MG TAB.ER.24H PO SCH (20:39)
[2021-08-17] MEDS ORDERED: Metoprolol XL (24 HR) Succ 25 MG TAB.ER.24H PO SCH (21:00)
[2021-08-18] MEDS: Heparin 25,000UNIT/250ML 1/2NS 25,000 UNIT/250 ML IV.SOLN IVC SCH (00:34)
[2021-08-18 02:25] LABS: Hematocrit 36.6 % (35.3-44.9); Hemoglobin 11.4 g/dL (11.5-15.4); Mean Corpuscular HGB Conc 31.1 g/dL (31.6-35.5); Mean Corpuscular Volume 96.3 fL (83.0-100.0); Mean Platelet Volume 11.4 fL (9.4-12.4); Platelet Count 221 K/mcL (140-400); Red Cell Distribution Width 13.1 % (11.5-14.5); White Blood Count 7.6 K/mcL (4.3-11.1)
[2021-08-18 02:45] LABS: BUN/Creatinine Ratio 31 (6-26); Blood Urea Nitrogen 18 mg/dL (8-23); Calcium 8.3 mg/dL (8.6-10.3); Carbon Dioxide 25 mEq/L (23-29); Chloride 109 mEq/L (98-107); Glucose 126 mg/dL (70-105); Osmolality,Calculated 291 (280-300); Potassium 3.4 mEq/L (3.5-5.1); Sodium 139 mEq/L (136-145); eGFR For African Americans > 60 (> 60); eGFR For Non-African Americans > 60 (> 60)
[2021-08-18] MEDS ORDERED: Regadenoson 0.4 MG/5 ML SYRINGE IVP ONE ×2 (07:43→07:50)
[2021-08-18] MEDS ORDERED: Aspirin 81 MG TAB.CHEW PO SCH (09:00)
[2021-08-18] MEDS: Metoprolol XL (24 HR) Succ 25 MG TAB.ER.24H PO SCH (09:54)
[2021-08-18 11:17] VITALS: BP 146/87; PULSE 62; TEMP 98.2; O2SAT 96
[2021-08-18] MEDS ORDERED: Apixaban 5 MG TABLET PO SCH ×2 (12:30→21:00)
== END 2021-08-18 14:40 | disposition home or self-care (01) ==
LOC: EMEROOARM 18:23 → 2ANU 18:23 → SUATTDRO 21:07 → 2ANU 22:04
PROVIDERS: ADMIT Student in an Organized Health Care Education/Training Program; ATTEND Family Medicine